=== PATIENT | male | born 1930 ===

== ENCOUNTER → 2016-10-30 | Day surgery (SDC) | payer OTHER ==
[~2016-10-30] VITALS: Ht 167.6 cm; Wt 68.0 kg
[2016-10-30] VITALS (9 sets, daily range): BP systolic 133–162; BP diastolic 66–79
[~2016-10-30] MED LIST: ASPIRIN81 M1 PO; Akten 3.5% 1ml Btl ONE; BSS 15ml BTL ONE; BSS 500ml btl ONE; Carbachol 0.01% Op Soln 1.5ml vial ONE; Cyclopentolate 1% Opth Sol LEFT EYE SCH; Dexamethasone 4mg/ml vial ONE; Diclofenac Sod 0.1% Op Soln ONE; EPINEPHrine 1mg/1ml Amp ONE; Gatifloxacin Opth Solution 0.5% ONE; LIPITOR20 MG PO; LR 1000ml ONE; Lidocaine 1% MPF 10mg/ml 5ml ONE; Midazolam 2mg/2ml Inj ONE; NS Irrig 1000ml ONE; Phenylephrine 2.5% Op Soln LEFT EYE SCH; Phenylephrine 2.5% Op Soln ONE; Povidone-Iodine 5% opth solution ONE; Sodium Hyaluronate 14 mg/ml 0.85ml ONE; Sterile Water Irrig 1000ml IRRIG ONE; TENORMIN25 MG ORAL; Tobradex Opth Susp 2.5ml ONE; Tropicamide 1% Opth Soln ONE; Vancomycin 1gm inj IVPB ONE; ZOCOR5 MG PO; fentaNYL 100 mcg/2 mL IV ONE
[2016-10-30] MEDS: Tobradex Opth Susp 2.5ml LEFT EYE SCH ×3 (06:27→06:47)
[2016-10-30] MEDS: Diclofenac Sod 0.1% Op Soln LEFT EYE SCH ×3 (06:27→06:47)
[2016-10-30] MEDS: Tropicamide 1% Opth Soln LEFT EYE SCH ×3 (06:27→06:47)
[2016-10-30] MEDS: Phenylephrine 2.5% Op Soln LEFT EYE SCH ×3 (06:27→06:47)
[2016-10-30] MEDS: Akten 3.5% 1ml Btl LEFT EYE SCH ×3 (06:27→06:47)
[2016-10-30] MEDS: Gatifloxacin Opth Solution 0.5% LEFT EYE SCH ×3 (06:28→06:47)
--- NOTE | 2016-10-30 08:47 | Pre-Procedure Note/Attestation ---
Pre-Procedure Note/Attestation Complete Prior to Procedure Planned Procedure: left Procedure Narrative: cataract extraction with implant left eye Indications for Procedure Pre-Operative Diagnosis: cataract left eye Attestation I attest that I discussed the nature of the procedure; its benefits; risks and complications; and alternatives (and the risks and benefits of such alternatives ), prior to the procedure, with the patient (or the patient's legal employment representative). I attest that, if there was a reasonable possibility of needing a blood transfusion, the patient (or the patient's legal employment representative) was given the [facility] standardized written summary, pursuant to the [place] Blood Safety Act ([place] Health and Safety Code # 1645, as amended). I attest that I re-evaluated the patient just prior to the surgery and that there has been no change in the patient's H&P, except as documented below: ADRIENNE BUSH Oct 30, 2016 08:47
--- NOTE | 2016-10-30 09:47 | Anethesia Preoperative Eval ---
Anesthesia Pre-op PMH/ROS General Date of Evaluation: Oct 30, 2016 Time of Evaluation: 09:25 Anesthesiologist: rosanne ASA Score: ASA 3 Mallampati Score Class I : Soft palate, uvula, fauces, pillars visible Class II: Soft palate, uvula, fauces visible Class III: Soft palate, base of uvula visible Class IV: Only hard plate visible Mallampati Classification: Class III Surgeon: nissa Diagnosis: cataract Surgical Procedure: cataract extraction left eye Anesthesia History: none Family History: no anesthesia problems Allergies: Coded Allergies: No Known Allergies (Verified Allergy, Mild, 08/07/10) Medications: see eMAR Past Medical History Cardiovascular: Reports: CAD, HTN, arrhythmia - hx of svt, other - hx CO Gastrointestinal/Genitourinary: Denies: CRI, ESRD, GERD, other Endocrine: Denies: DM, hypothyroidism, other, steroids HEENT: Reports: cataract (L) Hematology/Immune: Denies: DVT, anemia, bleeding disorder, other Musculoskeletal/Integumentary: Reports: OA, other - radiculopathy Other: obesity PMH Narrative: AAA repair/ CABG/ Shoulder surgery Anesthesia Pre-op Phys. Exam Physician Exam Last Vital Signs Date Time Temp Pulse Resp B/P Pulse Ox O2 Delivery O2 Flow Rate FiO2 10/30/16 06:32 97.0 69 20 133/66 97 Room Air Constitutional: NAD Neurologic: CN 2-12 intact Cardiovascular: RRR Respiratory: CTA Gastrointestinal: S/NT/ND Airway Exam Mallampati Score: Class III MO: full Neck: thick ROM: full Anesthesia Pre-op A/P Studies Pre-op Studies: EKG - SR Risk Assessment & Plan Assessment: Denies recent changes in health, Held ASA, Denies SOB/Chest pain Plan: mac Status Change Before Surgery: No Pre-Antibiotics Drug: none DORIS BERTRAND CRNA Oct 30, 2016 09:47
--- NOTE | 2016-10-30 10:37 | Brief Operative Note ---
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
--- NOTE | 2016-10-30 10:44 | Immediate Post-Op Evaluation ---
Immediate Post-Op Evalulation Immediate Post-Op Evalulation Procedure: left eye cataract extraction Date of Evaluation: Oct 30, 2016 Time of Evaluation: 10:43 IV Fluids: 300 Blood Pressure Systolic: 162 Blood Pressure Diastolic: 79 Pulse Rate: 72 Respiratory Rate: 14 O2 Sat by Pulse Oximetry: 98 Temperature (Fahrenheit): 98.5 Nausea: No Vomiting: No Complications none Patient Status: awake, patent Hydration Status: adequate Drug: none DORIS BERTRAND CRNA Oct 30, 2016 10:44
--- NOTE | 2016-10-30 11:08 | 48 Hour Post Anesthesia Eval ---
Post Anesthesia Evaluation Procedure: left eye cataract extraction Date of Evaluation: Oct 30, 2016 Time of Evaluation: 11:08 Blood Pressure Systolic: 154 0: 60 Pulse Rate: 70 O2 Sat by Pulse Oximetry: 98 Airway: patent Nausea: No Vomiting: No Hydration Status: adequate Mental Status/LOC: patient returned to baseline Post-Anesthesia Complications: none Follow-up care needed: N/A DORIS BERTRAND CRNA Oct 30, 2016 11:08
--- NOTE | 2016-10-30 18:57 | Operative Note - Dictated ---
DATE OF OPERATION: 10/30/2016 PREOPERATIVE DIAGNOSIS: Dense brunescent cataract, left eye with pseudoexfoliation. POSTOPERATIVE DIAGNOSIS: Dense brunescent cataract, left eye with pseudoexfoliation. Surgoen: Aftab Rae MD Day Care Home Mother: none Anesthesiology: MAC/ Cony Tarrimago PROCEDURE: Phacoemulsification, cataract left eye. INDICATION FOR PROCEDURE: Light perception vision, left eye. DESCRIPTION OF FINDINGS: Dense brunescent cataract, left eye with loose zonules. DESCRIPTION OF PROCEDURE: The patient received a topical anesthetic block consisting of 3.5% Akten eye drops. The eye was prepped and draped in usual manner. A lid speculum was placed. An operating Zeiss microscope was positioned. A temporal corneal groove was made with the bunny blade. A SuperSharp blade made a stab incision at the 6 o'clock position. A 0.1 mL of 1% nonpreserved intracameral lidocaine was injected. Air was instilled into the anterior chamber and Vision Blue dye was used to stain the anterior capsule. The dye was then irrigated with BSS. Healon was instilled into the anterior chamber and a 2.5/2.8 mm trapezoidal bunny blade was used to complete the temporal corneal wound. A cystotome was used to create an anterior capsular flap. Utrata forceps were used to complete the capsulorrhexis. BSS on a cannula was used to hydrodissect the nucleus. The lens nucleus was phacoemulsified in a phaco-fracture technique. It is noted with this very hard dense lens. there is some zonular dehiscence at 12 o' clock. Towards the end of the procedure, a small piece of nucleus fell into the posterior chamber through the zonular defect. The remaining nucleus was removed, but there is very little posterior capsule remaining. There is small amount of vitreous in the anterior chamber, which was removed with the avit. The wound was checked and was found to be free of vitreous. . One 10-0 interrupted nylon sutures placed at the wound. Wound was checked and found to be watertight. The lid speculum was removed and a drop of TobraDex and Vigamox was placed. A clear plastic shield was taped over the eye. The complications were discussed with the patient. The patient is to return in the future for removal of the nuclear fragment from the posterior chamber and placement of an intraocular lens. Aftab Rae M.D. ([facility]) DR: LANE JOB#: [id number] CC: [email or web address]
== END | disposition home or self-care (01) ==
LOC: SUR 05:28
DX: H25.12 Age-related nuclear cataract, left eye (principal); H40.1423 Capsular glaucoma with pseudoexfoliation of lens, left eye, severe stage; H59.212 Accidental puncture and laceration of left eye and adnexa during an ophthalmic procedure; Y65.8 Other specified misadventures during surgical and medical care; Y92.234 Operating room of hospital as the place of occurrence of the external cause; D64.9 Anemia, unspecified; I70.213 Atherosclerosis of native arteries of extremities with intermittent claudication, bilateral legs; I12.9 Hypertensive chronic kidney disease with stage 1 through stage 4 chronic kidney disease, or unspecified chronic kidney disease; N18.3 Chronic kidney disease, stage 3 (moderate); I71.4 Abdominal aortic aneurysm, without rupture; I25.119 Atherosclerotic heart disease of native coronary artery with unspecified angina pectoris; H35.3120 Nonexudative age-related macular degeneration, left eye, stage unspecified; H90.5 Unspecified sensorineural hearing loss; E78.5 Hyperlipidemia, unspecified; I25.2 Old myocardial infarction; M54.16 Radiculopathy, lumbar region; E66.9 Obesity, unspecified; Z68.25 Body mass index [BMI] 25.0-25.9, adult; I65.23 Occlusion and stenosis of bilateral carotid arteries; Z87.891 Personal history of nicotine dependence; Z79.82 Long term (current) use of aspirin; Z79.899 Other long term (current) drug therapy; Z88.5 Allergy status to narcotic agent; Z88.6 Allergy status to analgesic agent; Z88.8 Allergy status to other drugs, medicaments and biological substances
CPT/HCPCS: 66850; J0171; J1100; J2250; J3010; J3370; J7120; 94003; 94150

== ENCOUNTER → 2016-11-14 | Day surgery (SDC) | payer OTHER ==
[~2016-11-14] VITALS: Ht 167.6 cm; Wt 68.0 kg
[2016-11-14] VITALS (8 sets, daily range): BP systolic 120–160; BP diastolic 62–82
[~2016-11-14] MED LIST changes: -Akten 3.5% 1ml Btl ONE; +Avastin 10mg Inj IVITRE ONE; +Bupivacaine 0.75% 30ml vial INJ ONE; -Carbachol 0.01% Op Soln 1.5ml vial ONE; -Cyclopentolate 1% Opth Sol LEFT EYE SCH; -Diclofenac Sod 0.1% Op Soln ONE; +DiphenhydrAMINE 50mg/ml Inj IVP PRN; -EPINEPHrine 1mg/1ml Amp ONE; -Gatifloxacin Opth Solution 0.5% ONE; +Goniosol 2.5% Opth Soln - 15ml ONE; +LR 1000ml 1,000 ML IVLG SCH; -Lidocaine 1% MPF 10mg/ml 5ml ONE; +Lidocaine 2% MPF 5ml Vial INJ ONE; +Maxitrol Opth Susp 5ml ONE; -Phenylephrine 2.5% Op Soln LEFT EYE SCH; -Phenylephrine 2.5% Op Soln ONE; +Propofol 10mg/ml 20ml IV ONE; -Sodium Hyaluronate 14 mg/ml 0.85ml ONE; +Tetracaine 0.5% Opth Soln ONE; -Tobradex Opth Susp 2.5ml ONE; -Tropicamide 1% Opth Soln ONE; -Vancomycin 1gm inj IVPB ONE; -fentaNYL 100 mcg/2 mL IV ONE; +fentaNYL 100 mcg/2 mL IV PRN
[2016-11-14] MEDS: Cyclopentolate 1% Opth Sol LEFT EYE SCH ×3 (09:36→09:47)
[2016-11-14] MEDS: Phenylephrine 2.5% Op Soln LEFT EYE SCH ×3 (09:36→09:48)
--- NOTE | 2016-11-14 11:56 | Anethesia Preoperative Eval ---
Anesthesia Pre-op PMH/ROS General Date of Evaluation: Nov 14, 2016 Time of Evaluation: 11:51 Anesthesiologist: Breanna ASA Score: ASA 2 Mallampati Score Class I : Soft palate, uvula, fauces, pillars visible Class II: Soft palate, uvula, fauces visible Class III: Soft palate, base of uvula visible Class IV: Only hard plate visible Mallampati Classification: Class II Surgeon: Juana Diagnosis: L eye retained lens fragments Surgical Procedure: L eye PPv removal of retained lens fragments Anesthesia History: none Family History: no anesthesia problems Allergies: Coded Allergies: No Known Allergies (Verified , 08/07/10) Medications: see eMAR Past Medical History Cardiovascular: Reports: CAD - s/p CABG, HTN, Denies: CA, arrhythmia, other, valve dz Gastrointestinal/Genitourinary: Reports: GERD, Denies: CRI, ESRD, other Neurologic/Psychiatric: Denies: CVA, TIA, dementia, depression/anxiety, other Endocrine: Denies: DM, hypothyroidism, other, steroids HEENT: Reports: cataract (L), cataract (R), Denies: [place] (L), [place] (R), glaucoma, other Hematology/Immune: Denies: DVT, anemia, bleeding disorder, other Musculoskeletal/Integumentary: Reports: DJD, Denies: DDD, OA, RA, edema, other PMH Narrative: as above PSxH Narrative: CABG bilateral eye Sx Anesthesia Pre-op Phys. Exam Physician Exam Last Vital Signs Date Time Temp Pulse Resp B/P Pulse Ox O2 Delivery O2 Flow Rate FiO2 11/14/16 09:24 97.2 70 18 120/62 96 Room Air Constitutional: NAD Neurologic: CN 2-12 intact Cardiovascular: RRR, no M/R/G Respiratory: CTA Gastrointestinal: S/NT/ND Airway Exam Mallampati Score: Class II MO: limited Neck: stiff ROM: limited Teeth: missing Dentures: upper Anesthesia Pre-op A/P Labs see chart Studies Pre-op Studies: EKG - SR Risk Assessment & Plan Assessment: ASA 3 Plan: MAC with retrobulbar block Status Change Before Surgery: No Pre-Antibiotics Drug: none URSULA CAVAZOS M.D. Nov 14, 2016 11:55
--- NOTE | 2016-11-14 12:10 | Pre-Procedure Note/Attestation ---
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 I attest that, if there was a reasonable possibility of needing a blood transfusion, the patient (or the patient's legal representative phlebotomy services) was given the [place] [facility] standardized written summary, pursuant to the [place] Blood Safety Act ([place] Health and Safety Code # 1645, as amended). I attest that I re-evaluated the patient just prior to the surgery and that there has been no change in the patient's H&P, except as documented below: ELISE MEHTA Nov 14, 2016 12:10
--- NOTE | 2016-11-14 13:02 | Immediate Post-Op Evaluation ---
Immediate Post-Op Evalulation Immediate Post-Op Evalulation Procedure: L eye PPV removal of retained lens fragments Date of Evaluation: Nov 14, 2016 Time of Evaluation: 13:01 IV Fluids: 200 Blood Products: none Estimated Blood Loss: min Urinary Output: none Blood Pressure Systolic: 151 Blood Pressure Diastolic: 74 Pulse Rate: 64 Respiratory Rate: 20 O2 Sat by Pulse Oximetry: 99 Temperature (Fahrenheit): 97.4 Pain Score (1-10): 1 Nausea: No Vomiting: No Complications none Patient Status: reacts, patent, none Hydration Status: adequate URSULA CAVAZOS M.D. Nov 14, 2016 13:02
--- NOTE | 2016-11-14 13:03 | 48 Hour Post Anesthesia Eval ---
Post Anesthesia Evaluation Procedure: L eye PPV removal of retained lens fragments Date of Evaluation: Nov 14, 2016 Time of Evaluation: 13:30 Blood Pressure Systolic: 148 0: 56 Pulse Rate: 74 Respiratory Rate: 18 Temperature (Fahrenheit): 97.6 O2 Sat by Pulse Oximetry: 98 Airway: patent Nausea: No Vomiting: No Pain Intensity: 2 Hydration Status: adequate Cardiopulmonary Status: stable Mental Status/LOC: patient returned to baseline Follow-up Care/Observations: n/a Post-Anesthesia Complications: none Follow-up care needed: ready to discharge URSULA CAVAZOS M.D. Nov 14, 2016 13:03
--- NOTE | 2016-11-14 13:25 | Brief Operative Note ---
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
--- NOTE | 2016-11-19 09:58 | Operative Note - Dictated ---
DATE OF OPERATION: 11/14/2016 PREOPERATIVE DIAGNOSIS: Retained lens material with exudative age-related macular degeneration, left eye. POSTOPERATIVE DIAGNOSIS: Retained lens material with exudative age-related macular degeneration, left eye.. PROCEDURE: Pars plana vitrectomy, pars plana lensectomy, intraocular Avastin injection, left eye. SURGEON: Leno Montes M.D. PERSONAL COMPUTER NETWORK ENGINEER: None. ANESTHESIA: Local standby. ANESTHESIOLOGIST: Moe Carlos M.D. COMPLICATIONS: None Procedure and findings: The patient was anesthetized using a retrobulbar injection consisting of 8 mL of 50:50 mixture of lidocaine 2%, Marcaine 0.75% with 150 units of hyaluronidase added. When adequate anesthesia was obtained, he was prepped and draped in the usual sterile manner for ophthalmic surgery. A self-retaining lid speculum was placed between the lids. A 23-gauge trocar was used to place the cannula 3.5 mm posterior to the surgical limbus in the inferotemporal quadrant. An infusion line was hooked to the cannula and verified to be in the posterior chamber prior to turning on the infusion. In turn, superior nasal and superotemporal cannulas were placed. A fiberoptic light pipe and vitrectomy instrument were inserted into the eye. Several loose pieces of, mainly, cortical lens material was seen to be sitting on the retina and in remnants of the capsule superiorly. At least one piece had some nuclear material associated with it. A vitrectomy was performed with elevation of the posterior hyaloid face and trimming of the vitreous back toward the base for 360 degrees. The retained lens material was removed with the vitrectomy cutter at this time. The nuclear material, which was harder, was mashed into the port of the vitrectomy cutter using the light pipe as a second instrument. Following removal of all retained lens material and trimming of the vitreous back to the base for 360 degrees. The instruments were removed from the eye. The superior cannulas were removed. The lens and the lens ring which had been used to visualize were also removed. The infusion line and cannulas were then removed leaving the eye with a normal intraocular pressure and a good fluid filled. A subconjunctival injection consisting of vancomycin and Decadron was given. The patient was also given a single intraarticular injections of Avastin 1.25 mg per 0.1 mL into the posterior segments through the pars plana superotemporally. This was to treat an exudative subretinal neovascular membrane that was seen following removal of the cataract. The instruments were removed from the eye and the superior cannulas and lens were removed. The infusion line and cannula were removed leaving the eye with a normal intraocular pressure and a good fluid fill. A subconjunctival injection consisting of vancomycin and Decadron was given. The patient was patched with atropine and Maxitrol drops and sent to the recovery room in good condition. Leno Montes M.D. DR: Vanessa JOB#: [id number] CC: ANGEL
== END | disposition home or self-care (01) ==
LOC: EDUNIT# 06:47 → SUR 06:47
DX: H59.022 Cataract (lens) fragments in eye following cataract surgery, left eye (principal); Y83.8 Other surgical procedures as the cause of abnormal reaction of the patient, or of later complication, without mention of misadventure at the time of the procedure; Y92.89 Other specified places as the place of occurrence of the external cause; H35.3220 Exudative age-related macular degeneration, left eye, stage unspecified; D64.9 Anemia, unspecified; I12.9 Hypertensive chronic kidney disease with stage 1 through stage 4 chronic kidney disease, or unspecified chronic kidney disease; N18.3 Chronic kidney disease, stage 3 (moderate); I73.9 Peripheral vascular disease, unspecified; I25.10 Atherosclerotic heart disease of native coronary artery without angina pectoris; Z95.1 Presence of aortocoronary bypass graft; I25.2 Old myocardial infarction; K21.9 Gastro-esophageal reflux disease without esophagitis; M19.90 Unspecified osteoarthritis, unspecified site; E78.5 Hyperlipidemia, unspecified; H90.5 Unspecified sensorineural hearing loss; Z86.718 Personal history of other venous thrombosis and embolism; H40.1423 Capsular glaucoma with pseudoexfoliation of lens, left eye, severe stage; Z87.891 Personal history of nicotine dependence; M54.16 Radiculopathy, lumbar region; Z88.5 Allergy status to narcotic agent; Z88.8 Allergy status to other drugs, medicaments and biological substances; Z79.82 Long term (current) use of aspirin; Z79.899 Other long term (current) drug therapy
CPT/HCPCS: 66852; J1100; J2250; J2704; J3370; J3490; J7120; J9035; 94003; 94150

== ENCOUNTER 2017-08-29 09:00 | Outpatient (RCR) | payer OTHER ==
[~2017-08-29 09:00] MED LIST changes: -Avastin 10mg Inj IVITRE ONE; -BSS 15ml BTL ONE; -BSS 500ml btl ONE; -Bupivacaine 0.75% 30ml vial INJ ONE; -Dexamethasone 4mg/ml vial ONE; -DiphenhydrAMINE 50mg/ml Inj IVP PRN; -Goniosol 2.5% Opth Soln - 15ml ONE; -LR 1000ml 1,000 ML IVLG SCH; -LR 1000ml ONE; -Lidocaine 2% MPF 5ml Vial INJ ONE; -Maxitrol Opth Susp 5ml ONE; -Midazolam 2mg/2ml Inj ONE; -NS Irrig 1000ml ONE; -Povidone-Iodine 5% opth solution ONE; -Propofol 10mg/ml 20ml IV ONE; -Sterile Water Irrig 1000ml IRRIG ONE; -Tetracaine 0.5% Opth Soln ONE; -fentaNYL 100 mcg/2 mL IV PRN
== END 2017-09-28 | disposition home or self-care (01) ==
LOC: PTY 09:00
DX: R26.81 Unsteadiness on feet (principal); Z91.81 History of falling